=== PATIENT | female | born 1945 | race Caucasian/White ===

== ENCOUNTER → 2023-04-12 14:38 | Outpatient (CLI) | payer MEDICARE, SELFPAY ==
--- NOTE | 2023-04-12 14:40 | DI.RAD.S_ITS ---
PROCEDURE: XR ANKLE LT MIN 3V INDICATIONS: Chronic left ankle pain, worse w/physical activity TECHNIQUE: 3 views of the ankle were acquired. COMPARISON: None. FINDINGS: Bones: No fractures or dislocations. Ankle mortise is normally aligned. No suspicious bony lesions. Soft tissues: No tibiotalar joint effusion. Achilles tendon appears normal. IMPRESSION: No evidence acute bony abnormality. If clinical suspicion and/or symptoms persist, further assessment with repeat plain films, or advanced imaging (e.g., CT, MRI, or bone scan) may be helpful for further assessment. Dictated by: Hayder Fournier M.D. on 04/12/2023 at 16:52 Approved by: Hayder Fournier M.D. on 04/12/2023 at 16:54
--- NOTE | 2023-04-12 14:40 | DI.RAD.S_ITS ---
PROCEDURE: XR FOOT LT MIN 3V INDICATIONS: Chronic left ankle pain, worse w/physical activity TECHNIQUE: 3 views of the foot were acquired. COMPARISON: [facility], , XR ANKLE LT MIN 3V, 04/12/2023, 14:43. FINDINGS: Bones: No fractures or dislocations. No suspicious bony lesions. Hallux valgus, bunion, 1st MTP degenerative change. Soft tissues: No tibiotalar joint effusion. Achilles tendon appears normal. IMPRESSION: Hallux valgus, bunion, 1st MTP degenerative change. Dictated by: Hayder Fournier M.D. on 04/12/2023 at 16:50 Approved by: Hayder Fournier M.D. on 04/12/2023 at 16:51
== END ==
PROVIDERS: PCP Family Medicine; Referring Provider Family Medicine; Visit Provider Family Medicine
DX: M20.12 Hallux valgus (acquired), left foot (principal); M21.612 Bunion of left foot; M79.672 Pain in left foot
CPT/HCPCS: 73610; 73630

== ENCOUNTER 2023-05-12 10:23 | Day surgery (SDC) | payer MEDICARE, SELFPAY ==
[2023-05-11 08:21] VITALS: BMI 22.8
[2023-05-12] VITALS (7 sets, daily range): BP systolic 125–150; BP diastolic 55–72; PULSE 59–79; RESP 10–17; TEMP 36.2–36.7; O2SAT 94–99; BMI 24.7
--- NOTE | 2023-05-12 11:14 | SUR.PREOP ---
Upon admitting patient noted that patient has diagnosis of alzheimers and has some noted forgetfulness. Able to answer most questions, but states it is 2005. Called daughter in law and son who went to lunch after dropping patient off. Daughter in law able to answer questions regarding medications over phone and requested that Bill (who is the patient's POA) come in to sign anesthesia paperwork and go over questions about patient. Anesthesia updated on situation and in agreement that son should come in to assist with admit.
--- NOTE | 2023-05-12 11:38 | PM.PREOP ---
Pre-operative Note COVID-19 COVID-19 status: Not tested Interval Note History & Physical reviewed/Exam performed by Physician: Yes Changes to H&P: No
[2023-05-12] MEDS: CEFAZOLIN 2 GM/100 ML PREMIX 100 ML IV (11:48)
[2023-05-12] MEDS: ACETAMINOPHEN IV 1,000 MG/100 ML VIAL 400 MG IV (12:00)
--- NOTE | 2023-05-12 12:00 | SUR.OPER ---
Lithotomy on padded OR bed, head on pillow, arms secured on padded arm boards at <90 degrees abduction. Legs secured in padded yellow fins stirrups.
[2023-05-12] MEDS: LACTATED RINGERS 1,000 ML 42 ML IV (12:48)
--- NOTE | 2023-05-12 13:46 | PM.GYNOP.1 ---
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 After considering all options, she has elected to proceed colpocleisis and is admitted at this time for procedure. 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 Closure Type: primary Specimen(s): none Estimated blood loss (mL): 75 Blood products transfused: none Procedure in detail: With the patient under satisfactory general endotracheal anesthesia in the modified dorsal lithotomy position, the vagina, perineum, and lower abdominal wall were prepped and draped in the usual manner for colpocleisis. A pre-surgical safety time-out was then taken in accordance with [facility] OR protocols. A short weighted speculum was placed in the vagina and the vaginal cuff identified visually. The vaginal cuff was grasped with 2 T clamps and mobilized downward. The area of mucosal incision anteriorly starting 2 cm distal to the vaginal cuff scar, 3 cm in width, and extending distal to 4 cm from the hymeneal ring was made with marking pen. Posteriorly a similar rectangle was marked from 2 cm distal to the vaginal cuff posteriorly, 3 cm in width and extending to within 4 cm of the posterior hymenal ring. Vaginal mucosa both anterior and posterior which was to be excised was infiltrated with 0.25% Marcaine with epinephrine. The mucosa both anterior and posterior was excised with sharp and blunt dissection. The most cephalic edges of the mucosa were then brought together with 2-0 Vicryl interrupted. The denuded anterior and posterior tissues were then brought together with 2-0 Vicryl using [id number] stitches at consecutive levels followed by approximation of the lateral mucosa with 2-0 Vicryl interrupted. Five layers of [id number] stitches and lateral interrupted were used to bring the denuded areas of anterior and posterior tissues together in the midline. The distal most vaginal mucosa was then brought together with 2-0 Vicryl interrupted, thus completing the performance of the colpocleisis. A umair-shaped incision of the skin overlying the perineal body up into the distal most vagina was made with monopolar cutting and the mucosa excised in the usual manner. Sharp and blunt dissection was used to expose the distal levators on both sides and 0 Vicryl interrupted were used to approximate the distal levators. Additional 2-0 Vicryl stitches were used to bring the introitus together in midline and substance of the perineal body was also plicated in the midline with 2-0 Vicryl interrupted. The vaginal mucosa was then brought together with 2-0 Vicryl and a running interlocking stitch all the way down to the perineal body. Case was then completed and the patient awakened from general anesthesia. She was then transferred to the PACU for a period of observation and recovery having tolerated procedure well. Complications: none Post-operative Condition: stable Disposition: PACU Plan for aftercare: Routine post-operative care.
[2023-05-12] MEDS: BUPIVACAINE 0.5% (PF) 30 ML, EPINEPHrine 0.15 MG INJ (13:47)
== END 2023-05-12 14:42 | disposition home or self-care (01) ==
PROVIDERS: PCP Family Medicine; Referring Provider Obstetrics & Gynecology; Visit Provider Obstetrics & Gynecology
PROC: (CPT 57120; principal; 2023-05-12 11:30)
DX: N99.3 Prolapse of vaginal vault after hysterectomy (principal)
CPT/HCPCS: 57120; J0131; J0171; J0690; J1100; J2405; J2704; J3010